=== PATIENT | male | born 1985 | race African-American/Black ===

== ENCOUNTER 2022-05-11 13:12 | Emergency (ER) | payer OTHER ==
[2022-05-11 14:03] LABS: BASOPHIL 0.1 % (0-2); EOSINOPHIL 0 % (0-5); HCT 42.4 % (42.0-52.0); HGB 14.6 g/dl (13.2-18.0); LYMPHOCYTE 9.2 % (15-48); MCHC 34.4 g/dL (32.0-36.0); MCV 87.1 fL (78.0-100.0); MPV 9.2 fL (6.0-9.5); NEUTROPHIL 86.4 % (41-80); NRBC 0; PLT 318 K/uL (150-400); RBC 4.87 M/uL (4.70-6.00); RDW 12.6 % (11.5-14.0); WBC 8.6 K/uL (4.0-10.5)
[2022-05-11 14:31] LABS: ALBUMIN 4.4 g/dL (3.4-5.0); ALKALINE PHOSHATASE 53 U/L (46-116); ALT 30 U/L (16-63); AST 23 U/L (15-37); BILIRUBIN - TOTAL 1.1 mg/dL (0.2-1.0); BUN 22 mg/dL (7-18); BUN/CREAT RATIO (CALC) 22.4 RATIO; CHLORIDE 102 mmol/L (98-107); CO2 (BICARBONATE) 29 mmol/L (21-32); CREATININE 0.98 mg/dL (0.67-1.17); GLUCOSE 123 mg/dL (74-106); POTASSIUM 4.1 mmol/L (3.5-5.1); TOTAL PROTEIN 7.4 g/dL (6.4-8.2)
== END 2022-05-11 15:48 | disposition home or self-care (01) ==
LOC: FER 13:12
PROVIDERS: Emergency Medicine
DX: F11.23 Opioid dependence with withdrawal (principal); Z20.822 Contact with and (suspected) exposure to COVID-19
CPT/HCPCS: 36415; 70450; 80053; 85025; G0480; J2405; J7030; U0002